=== PATIENT | male | born 1980 | race Caucasian/White ===

== ENCOUNTER 2020-09-17 14:52 | Emergency (ER) | payer SELFPAY ==
[2020-09-17 15:33] LABS: EOS # 0.2 (0.04-0.40); EOS % 3.6 % (0.0-4.0); HEMATOCRIT 38.9 % (42.0-52.0); HEMOGLOBIN 13.3 g/dL (13.5-18.0); LYMPH# 1.6 (1.50-4.00); MEAN CELL VOLUME 92 fl (78-100); MEAN CORPUSCULAR HEMOGLOBIN 31 pg (27-31); MEAN CORPUSCULAR HGB CONC 34 g/dL (33-37); MEAN PLATELET VOLUME 9.2 fl (7.4-10.4); MONO # 0.4 (0.20-0.80); PLATELET COUNT 386 K/mm3 (130-400); RED BLOOD COUNT 4.24 M/mm3 (4.20-5.60); RED CELL DISTRIBUTION WIDTH 12.7 % (11.5-14.5); WHITE BLOOD COUNT 6.2 K/mm3 (4.8-10.8)
[2020-09-17 15:46] LABS: ALBUMIN 4.2 g/dL (3.5-5.0); POTASSIUM 3.8 mmol/L (3.5-5.1); SODIUM 141 mmol/L (136-145)
[2020-09-17 15:48] LABS: GLUCOSE 102 mg/dL (75-110); TOTAL PROTEIN 6.9 g/dL (6.4-8.3)
[2020-09-17 15:50] LABS: CARBON DIOXIDE 24 mmol/L (22-29); TOTAL BILIRUBIN 0.5 mg/dL (0.2-1.2)
[2020-09-17 15:54] LABS: AST-SGOT 15 U/L (5-34)
[2020-09-17 15:55] LABS: ALT/SGPT 16 U/L (0-55); LIPASE 22 U/L (8-78)
[2020-09-17 16:06] LABS: TROPONIN-I < 0.03 ng/mL (<0.030)
[2020-09-17 16:32] LABS: URINE APPEARANCE HAZY; URINE BILIRUBIN NEGATIVE (NEGATIVE); URINE BLOOD NEGATIVE (NEGATIVE); URINE COLOR YELLOW; URINE GLUCOSE NEGATIVE (NEGATIVE); URINE KETONE NEGATIVE (NEGATIVE); URINE LEUKOCYTE ESTERASE NEGATIVE (NEGATIVE); URINE NITRATE NEGATIVE (NEGATIVE); URINE PROTEIN(semi-quant) TRACE mg/dL (NEGATIVE); URINE UROBILINOGEN NORMAL (NORMAL); URINE WBC 0-1 /hpf (0-3)
[2020-09-17] MEDS ORDERED: CYCLOBENZAPRINE10 M1 PO (17:19)
[2020-09-17 17:33] VITALS: BP 102/67
== END 2020-09-17 17:45 | disposition home or self-care (01) ==
LOC: ED 14:52
PROVIDERS: Nurse Practitioner Family
DX: G44.209 Tension-type headache, unspecified, not intractable (principal); S16.1XXA Strain of muscle, fascia and tendon at neck level, initial encounter; M54.12 Radiculopathy, cervical region; R11.2 Nausea with vomiting, unspecified; E11.9 Type 2 diabetes mellitus without complications; G47.33 Obstructive sleep apnea (adult) (pediatric); Z99.89 Dependence on other enabling machines and devices; Z87.891 Personal history of nicotine dependence; X58.XXXA Exposure to other specified factors, initial encounter
CPT/HCPCS: J1885; J2360; J2405; J7030

== ENCOUNTER 2020-10-08 10:15 | Emergency (ER) | payer SELFPAY ==
[~2020-10-08 10:15] MED LIST: CYCLOBENZAPRINE10 M1 PO
[2020-10-08] MEDS ORDERED: CLEOCIN HCL300 MG PO (10:25)
[2020-10-08 11:01] LABS: BASO # 0.04 (0.02-0.10); EOS # 0.36 (0.04-0.40); EOS % 5.1 % (0.0-4.0); HEMATOCRIT 38.3 % (42.0-52.0); HEMOGLOBIN 13.3 g/dL (13.5-18.0); LYMPH# 2.19 (1.50-4.00); MEAN CELL VOLUME 92 fl (78-100); MEAN CORPUSCULAR HEMOGLOBIN 32 pg (27-31); MEAN CORPUSCULAR HGB CONC 35 g/dL (33-37); MEAN PLATELET VOLUME 9.1 fl (7.4-10.4); MONO # 0.64 (0.20-0.80); PLATELET COUNT 419 K/mm3 (130-400); RED BLOOD COUNT 4.18 M/mm3 (4.20-5.60); RED CELL DISTRIBUTION WIDTH 12.3 % (11.5-14.5)
[2020-10-08 11:06] LABS: ALBUMIN 4.3 g/dL (3.5-5.0)
[2020-10-08 11:07] LABS: POTASSIUM 4.4 mmol/L (3.5-5.1)
[2020-10-08 11:08] LABS: CALCIUM 8.9 mg/dL (8.3-10.5)
[2020-10-08 11:09] LABS: TOTAL PROTEIN 7.1 g/dL (6.4-8.3)
[2020-10-08 11:11] LABS: TOTAL BILIRUBIN 0.4 mg/dL (0.2-1.2)
[2020-10-08 11:35] LABS: URINE APPEARANCE CLEAR; URINE BILIRUBIN NEGATIVE (NEGATIVE); URINE BLOOD NEGATIVE (NEGATIVE); URINE COLOR YELLOW; URINE GLUCOSE NEGATIVE (NEGATIVE); URINE KETONE NEGATIVE (NEGATIVE); URINE LEUKOCYTE ESTERASE NEGATIVE (NEGATIVE); URINE NITRATE NEGATIVE (NEGATIVE); URINE PROTEIN(semi-quant) TRACE mg/dL (NEGATIVE); URINE UROBILINOGEN NORMAL (NORMAL); URINE WBC 0-1 /hpf (0-3)
[2020-10-08] MEDS ORDERED: CYCLOBENZ5 MG PO (14:19)
[2020-10-08 14:53] VITALS: BP 103/67
== END 2020-10-08 14:55 | disposition home or self-care (01) ==
LOC: ED 10:15
PROVIDERS: Nurse Practitioner Family
DX: M54.16 Radiculopathy, lumbar region (principal); F17.220 Nicotine dependence, chewing tobacco, uncomplicated; Z90.49 Acquired absence of other specified parts of digestive tract; Z87.442 Personal history of urinary calculi
CPT/HCPCS: J1100; J1885; J2270; J2405; J7030; Q9967